=== PATIENT | male | born 1990 | race Caucasian/White ===

== ENCOUNTER 2019-06-17 22:16 | Emergency (ER) | payer OTHER, SELFPAY ==
--- NOTE | 2019-06-17 23:57 | EDPHYS ---
Physician Documentation [facility] Name: Thomas De Los Santos Age: 29 yrs Sex: Male : 1990 Arrival Date: 06/17/2019 Time: 22:20 Bed 24 Private MD: None, None ED Physician Pankaj Witt HPI: 06/17 23:21 This 29 yrs old Male presents to ER via Ambulatory with complaints of Chest jmm and back pain. 23:21 The patient or guardian reports cough. Onset: The symptoms/episode began/occurred jmm gradually, 2 day(s) ago. Modifying factors: The symptoms are alleviated by nothing. the symptoms are aggravated by nothing. Associated signs and symptoms: Pertinent positives: fever, Pertinent negatives: sore throat, vomiting. The patient has not experienced similar symptoms in the past. This is a 29 year old male with no chronic medical conditions that presents to the ED with complaints of cough with chest pain, body aches, upper back pain beginning 2 days ago. Denies vomiting or abdominal pain. . Historical: - Allergies: 22:33 METRONIDAZOLE; - Home Meds: 22:33 None [Active]; - PMHx: 22:33 CDIFF; - PSHx: 22:33 None; - Immunization history:: Adult Immunizations not up to date. - Social history:: Smoking status: Patient uses tobacco products, denies chronic smoking, but will smoke occasionally. - Ebola Screening: : Patient negative for fever greater than or equal to 101.5 degrees Fahrenheit, and additional compatible Ebola Virus Disease symptoms Patient denies exposure to infectious person. ROS: 23:21 Abdomen/GI: Negative for abdominal pain, nausea, vomiting, diarrhea, and constipation. jmm 23:21 Constitutional: Positive for body aches, chills. 23:21 Cardiovascular: Positive for chest pain, with cough. 23:21 Respiratory: Positive for cough. 23:21 Back: Positive for pain at rest. 23:21 All other systems are negative. Exam: 23:21 Constitutional: This is a well developed, well nourished patient who is awake, alert, jmm and in no acute distress. Head/Face: atraumatic. Eyes: EOMI, no conjunctival erythema appreciated ENT: Moist Mucus Membranes 23:21 Neck: Trachea midline, Supple Chest/axilla: Normal chest wall appearance and motion. 23:21 Abdomen/GI: Non distended, soft Back: Normal ROM Skin: General appearance color normal MS/ Extremity: Moves all extremities, no obvious deformities appreciated, no edema noted to the lower extremities Neuro: Awake and alert, normal gait Psych: Behavior is normal, Mood is normal, Patient is cooperative and pleasant 23:21 ENT: TM's: are normal, Posterior pharynx: Uvula: erythema, erythema, that is moderate. 23:21 Cardiovascular: Rate: normal, Rhythm: regular. 23:21 Respiratory: the patient does not display signs of respiratory distress, Respirations: normal, Breath sounds: wheezing: that is mild, is heard in the left posterior upper lobe. Vital Signs: 22:32 BP 139 / 85; Pulse 77; Resp 18; Temp 97.9; Pulse Ox 100% ; Weight 90.72 kg; Height 6 wh ft. 0 in. (182.88 cm); 23:44 BP 123 / 81; Pulse 72; Resp 18; Pulse Ox 100% on R/A; wh 06/18 00:32 BP 130 / 82; Pulse 78; Resp 17; Temp 98(O); Pulse Ox 100% ; rv 06/17 22:32 Body Mass Index 27.12 (90.72 kg, 182.88 cm) wh MDM: 06/17 22:41 Patient medically screened. dulce 23:55 Data reviewed: vital signs, nurses notes. Counseling: I had a detailed discussion with dulce the patient and/or guardian regarding: the historical points, exam findings, and any diagnostic results supporting the discharge/admit diagnosis, lab results, radiology results, the need for outpatient follow up, to return to the emergency department if symptoms worsen or persist or if there are any questions or concerns that arise at home. ED course: Patient is alert and non toxic in appearance in the ED. CXR clear. patient advised to follow up with pcp and otherwise given strict return precautions. Patient understood and agrees with the plan of care. . 06/17 22:27 Order name: Flu; Complete Time: 23:20 wh 06/17 22:27 Order name: Strep; Complete Time: 23:20 wh 06/17 22:46 Order name: Chest Pa And Lat (2 Views) XRAY [facility] 06/17 23:21 Order name: Throat Culture EDMS Administered Medications: No medications were administered Disposition: 06/17/19 23:56 Discharged to Home. Impression: Influenza due to certain identified influenza viruses. - Condition is Stable. - Discharge Instructions: Influenza, Adult. - Prescriptions for Albuterol Sulfate 90 mcg/actuation - inhale 1-2 puff by INHALATION route every 4-6 hours; 1 Inhaler. Tamiflu 75 mg Oral Capsule - take 1 tablet by ORAL route every 12 hours for 5 days; 10 tablet. - Medication Reconciliation Form, Thank You Letter, Antibiotic Education, Prescription Opioid Use, Work release form form. - Follow up: Private Physician; When: 2 - 3 days; Reason: Recheck today's complaints, Continuance of care, Re-evaluation by your physician. Addendum: 06/20/2019 21:57 Co-signature as Attending Physician, Pankaj Witt MD I agree with the assessment and t w4 plan of care. Signatures: Dispatcher [employer] EDMS Koko Bailey PA PA jmm Habalo, Winsy wh Wadley, Terrence, MD MD tw4 Artem Hedrick RN RN rv Corrections: (The following items were deleted from the chart) 06/18 00:33 06/17 23:56 06/17/2019 23:56 Discharged to Home. Impression: Influenza due to certain rv identified influenza viruses. Condition is Stable. Forms are Medication Reconciliation Form, Thank You Letter, Antibiotic Education, Prescription Opioid Use. Follow up: Private Physician; When: 2 - 3 days; Reason: Recheck today's complaints, Continuance of care, Re-evaluation by your physician. dulce
--- NOTE | 2019-06-17 23:57 | ER ---
Nurse's Notes [facility] Name: Thomas De Los Santos Age: 29 yrs Sex: Male : 1990 Arrival Date: 06/17/2019 Time: 22:20 Bed 24 Private MD: None, None Diagnosis: Influenza due to certain identified influenza viruses Presentation: 06/17 22:30 Presenting complaint: Patient states: Pt C/O productive cough, chest congestion and wh back pain for 3 days now, denies fever, nausea or vomiting. Transition of care: patient was not received from another setting of care. Onset of symptoms was June 17, 2019. Risk Assessment: Do you want to hurt yourself or someone else? Patient reports no desire to harm self or others. Initial Sepsis Screen: Does the patient meet any 2 criteria? No. Patient's initial sepsis screen is negative. Does the patient have a suspected source of infection? Yes: Productive cough/pneumonia. Care prior to arrival: None. 22:30 Method Of Arrival: Ambulatory 22:30 Acuity: SUBHASH 4 Historical: - Allergies: 22:33 METRONIDAZOLE; - Home Meds: 22:33 None [Active]; - PMHx: 22:33 CDIFF; - PSHx: 22:33 None; - Immunization history:: Adult Immunizations not up to date. - Social history:: Smoking status: Patient uses tobacco products, denies chronic smoking, but will smoke occasionally. - Ebola Screening: : Patient negative for fever greater than or equal to 101.5 degrees Fahrenheit, and additional compatible Ebola Virus Disease symptoms Patient denies exposure to infectious person. Screenin:35 Abuse screen: Denies threats or abuse. Denies injuries from another. Nutritional screening: No deficits noted. Tuberculosis screening: No symptoms or risk factors identified. Fall Risk None identified. Assessment: 22:34 General: Appears in no apparent distress. Behavior is calm, cooperative, appropriate for age. Pain: Complains of pain in back Pain does not radiate. Pain currently is 5 out of 10 on a pain scale. Quality of pain is described as aching, Pain began 2-3 days ago. Neuro: Level of Consciousness is awake, alert, obeys commands, Oriented to person, place, time, situation, Appropriate for age. Cardiovascular: Heart tones S1 S2. Respiratory: Reports cough that is productive, Airway is patent Respiratory effort is even, unlabored, Respiratory pattern is regular, symmetrical, Breath sounds are clear bilaterally. GI: Abdomen is flat, non-distended. : No signs and/or symptoms were reported regarding the genitourinary system. EENT: Throat is pink. Derm: Skin is intact, is healthy with good turgor, Skin is pink, warm \T\ dry. normal. Musculoskeletal: Circulation, motion, and sensation intact. 23:44 Reassessment: Patient appears in no apparent distress at this time. No changes from previously documented assessment. Patient and/or family updated on plan of care and expected duration. Pain level reassessed. Patient is alert, oriented x 3, equal unlabored respirations, skin warm/dry/pink. Vital Signs: 22:32 BP 139 / 85; Pulse 77; Resp 18; Temp 97.9; Pulse Ox 100% ; Weight 90.72 kg; Height 6 ft. 0 in. (182.88 cm); 23:44 BP 123 / 81; Pulse 72; Resp 18; Pulse Ox 100% on R/A; 06/18 00:32 BP 130 / 82; Pulse 78; Resp 17; Temp 98(O); Pulse Ox 100% ; rv 06/17 22:32 Body Mass Index 27.12 (90.72 kg, 182.88 cm) ED Course: 06/17 22:20 Patient arrived in ED. es 22:21 None, None is Private Physician. es 22:23 Pita Lyon is Primary Nurse. 22:23 Koko Bailey PA is PHCP. [facility] 22:24 Pankaj Witt MD is Attending Physician. [facility] 22:31 Triage completed. 22:35 Arm band placed on right wrist. 22:35 Patient has correct armband on for positive identification. Bed in low position. Call light in reach. Side rails up X 1. Pulse ox on. NIBP on. 23:13 Chest Pa And Lat (2 Views) XRAY In Process Unspecified. EDMS 06/18 00:32 No provider procedures requiring assistance completed. Patient did not have IV access rv during this emergency room visit. Administered Medications: No medications were administered Outcome: 06/17 23:56 Discharge ordered by . [facility] 06/18 00:32 Discharged to home ambulatory, with family. rv Condition: good Discharge instructions given to patient, Instructed on discharge instructions, follow up and referral plans. medication usage, Demonstrated understanding of instructions, follow-up care, medications, Prescriptions given X 2. 00:33 Patient left the ED. rv Signatures: Dispatcher [employer] EDMS Koko Bailey PA PA jmm Salyer, Pita Orr Ronaldo, RN RN rv
[2019-06-18 01:27] VITALS: O2SAT 100
[2019-06-18 01:31] VITALS: BP 130/82; TEMP 98
--- NOTE | 2019-06-18 10:40 | RAD REPORT ---
EXAM DESCRIPTION: RAD - Chest Pa And Lat (2 Views) - 06/17/2019 11:13 pm CLINICAL HISTORY: chest pain, cough Chest pain. COMPARISON: No comparisons FINDINGS: The lungs are clear. The heart is normal in size. No displaced fractures. IMPRESSION: No acute or concerning finding suspected.
== END 2019-06-18 00:33 | disposition home or self-care (01) ==
LOC: ER 22:16
DX: J10.1 Influenza due to other identified influenza virus with other respiratory manifestations (principal); Z72.0 Tobacco use; Z88.8 Allergy status to other drugs, medicaments and biological substances
CPT/HCPCS: 71046; 87070; 87081; 87804; 99283

== ENCOUNTER 2019-10-04 14:43 | Emergency (ER) | payer SELFPAY ==
--- NOTE | 2019-10-04 16:01 | ER ---
Nurse's Notes [facility] Name: Thomas De Los Santos Age: 29 yrs Sex: Male : 1990 Arrival Date: 10/04/2019 Time: 14:46 Bed 17 Private MD: Diagnosis: Acute pharyngitis;Acute serous otitis media Presentation: 10/03 15:07 Chief complaint: Patient states: Sore throat and fever since yesterday. Ibuprofen taken ca1 at 1200 today. Coronavirus screen: The patient has NOT traveled to [place] in the past 14 days. The patient has NOT had contact with known and/or suspected case of Coronavirus. Ebola Screen: Patient negative for fever greater than or equal to 101.5 degrees Fahrenheit, and additional compatible Ebola Virus Disease symptoms Patient denies exposure to infectious person. Patient denies travel to an Ebola-affected area in the 21 days before illness onset. No symptoms or risks identified at this time. Initial Sepsis Screen: Does the patient meet any 2 criteria? No. Patient's initial sepsis screen is negative. Does the patient have a suspected source of infection? No. Patient's initial sepsis screen is negative. Risk Assessment: Do you want to hurt yourself or someone else? Patient reports no desire to harm self or others. 15:07 Method Of Arrival: Ambulatory ca1 15:07 Acuity: SUBHASH 4 ca1 15:07 Onset of symptoms was October 04, 2019. ca1 Triage Assessment: 15:07 EENT: Throat is reddened has patchy exudate. ca1 15:30 General: Appears in no apparent distress. comfortable, Behavior is calm, cooperative. mg2 Historical: - Allergies: 15:11 METRONIDAZOLE; ca1 - Home Meds: 15:11 None [Active]; ca1 - PMHx: 15:11 Cdiff; ca1 - PSHx: 15:11 None; ca1 - Immunization history:: Adult Immunizations not up to date, Flu vaccine is not up to date. - Social history:: Smoking status: Patient reports the use of cigarette tobacco products, denies chronic smoking, but will smoke occasionally. Screenin:30 Abuse screen: Denies threats or abuse. Denies injuries from another. Nutritional mg2 screening: No deficits noted. Tuberculosis screening: No symptoms or risk factors identified. Fall Risk None identified. Assessment: 15:30 General: Appears in no apparent distress. comfortable. Pain: Complains of pain in mg2 throat. Neuro: Level of Consciousness is awake, alert, obeys commands, Oriented to person, place, time, situation. Cardiovascular: Capillary refill < 3 seconds Patient's skin is warm and dry. Respiratory: Airway is patent Respiratory effort is even, unlabored, Breath sounds are clear bilaterally. GI: No signs and/or symptoms were reported involving the gastrointestinal system. : No signs and/or symptoms were reported regarding the genitourinary system. EENT: Reports sore throat. Derm: Skin is intact, is healthy with good turgor, Skin is pink, warm \T\ dry. normal. Musculoskeletal: Circulation, motion, and sensation intact. Capillary refill < 3 seconds. Vital Signs: 15:07 BP 130 / 78; Pulse 84; Resp 16 S; Temp 99.9(O); Pulse Ox 96% on R/A; Weight 90.72 kg ca1 (R); Height 5 ft. 11 in. (180.34 cm) (R); 15:58 BP 125 / 78; Pulse 80; Resp 18; Temp 99.5; Pulse Ox 100% on R/A; mg2 15:07 Body Mass Index 27.89 (90.72 kg, 180.34 cm) ca1 ED Course: 14:46 Patient arrived in ED. mr 14:52 [facility] snw 14:52 Kiki Madsen MD is Attending Physician. snw 15:07 Arm band placed on right wrist. ca1 15:09 Triage completed. ca1 15:20 Chad Martínez, TANNER is Primary Nurse. mg2 15:30 Patient has correct armband on for positive identification. mg2 15:37 No provider procedures requiring assistance completed. Strep swab sent to lab. Patient mg2 did not have IV access during this emergency room visit. Administered Medications: 16:14 Not Given (patient left already): predniSONE 40 mg PO once mg2 16:14 Not Given (patient left already): ZyrTEC - Cetirizine 10 mg PO once mg2 16:15 Not Given (patient left already): Augmentin 875 mg PO once mg2 Outcome: 16:00 Discharge ordered by . snw 16:15 Patient left the ED. mg2 16:15 Discharged to home ambulatory. mg2 16:15 Condition: stable 16:15 Discharge instructions given to patient, Instructed on discharge instructions, follow mg2 up and referral plans. medication usage, Demonstrated understanding of instructions, follow-up care, medications, Prescriptions given X 3. Signatures: Malu Lr, SHEETER HELPER-C SHEETER HELPER-Csnw Ryan Yuliana Martínez, Chad, RN RN mg2 Yojana Turner RN RN ca1 Corrections: (The following items were deleted from the chart) 15:10 15:07 Pulse 84bpm; Resp 16bpm; Spontaneous; Pulse Ox 96% RA; Temp 99.9F Oral; 90.72 kg ca1 Reported; Height 5 ft. 11 in. Reported; BMI: 27.8; ca1
--- NOTE | 2019-10-04 16:01 | EDPHYS ---
Physician Documentation [facility] Name: Thomas De Los Santos Age: 29 yrs Sex: Male : 1990 Arrival Date: 10/04/2019 Time: 14:46 Bed 17 Private MD: ED Physician Kiki Madsen HPI: 10/03 16:08 This 29 yrs old Male presents to ER via Ambulatory with complaints of Sore snw Throat. 16:08 The patient presents with sore throat. The patient describes throat pain as raw, snw scratchy, suffocating. Onset: The symptoms/episode began/occurred suddenly, last night. Severity of symptoms: At their worst the symptoms were moderate. Modifying factors: The symptoms are alleviated by nothing. Associated signs and symptoms: Pertinent positives: fever, Sore throat. The patient has experienced similar episodes in the past. It is unknown whether or not the patient has recently seen a physician. Historical: - Allergies: 15:11 METRONIDAZOLE; ca1 - Home Meds: 15:11 None [Active]; ca1 - PMHx: 15:11 Cdiff; ca1 - PSHx: 15:11 None; ca1 - Immunization history:: Adult Immunizations not up to date, Flu vaccine is not up to date. - Social history:: Smoking status: Patient reports the use of cigarette tobacco products, denies chronic smoking, but will smoke occasionally. ROS: 16:07 Eyes: Negative for injury, pain, redness, and discharge, ENT: Negative for injury, snw Positive sore throat, swollen tonsils Cardiovascular: Negative for chest pain, palpitations, and edema, Respiratory: Negative for shortness of breath, cough, wheezing, and pleuritic chest pain, Abdomen/GI: Negative for abdominal pain, nausea, vomiting, diarrhea, and constipation, Back: Negative for injury and pain, : Negative for injury, bleeding, discharge, and swelling, MS/Extremity: Negative for injury and deformity, Skin: Negative for injury, rash, and discoloration, Neuro: Negative for headache, weakness, numbness, tingling, and seizure. 16:07 Constitutional: Positive for fever. 16:07 Neck: Positive for swollen nodes. Exam: 16:05 Head/Face: Normocephalic, atraumatic. Eyes: Pupils equal round and reactive to light, snw extra-ocular motions intact. Lids and lashes normal. Conjunctiva and sclera are non-icteric and not injected. Cornea within normal limits. Periorbital areas with no swelling, redness, or edema. 16:05 Chest/axilla: Normal chest wall appearance and motion. Nontender with no deformity. No lesions are appreciated. Cardiovascular: Regular rate and rhythm with a normal S1 and S2. No gallops, murmurs, or rubs. Normal PMI, no JVD. No pulse deficits. Respiratory: Lungs have equal breath sounds bilaterally, clear to auscultation and percussion. No rales, rhonchi or wheezes noted. No increased work of breathing, no retractions or nasal flaring. Abdomen/GI: Soft, non-tender, with normal bowel sounds. No distension or tympany. No guarding or rebound. No evidence of tenderness throughout. Back: No spinal tenderness. No costovertebral tenderness. Full range of motion. Skin: Warm, dry with normal turgor. Normal color with no rashes, no lesions, and no evidence of cellulitis. MS/ Extremity: Pulses equal, no cyanosis. Neurovascular intact. Full, normal range of motion. Neuro: Awake and alert, GCS 15, oriented to person, place, time, and situation. Cranial nerves II-XII grossly intact. Motor strength 5/5 in all extremities. Sensory grossly intact. Cerebellar exam normal. Normal gait. Psych: Awake, alert, with orientation to person, place and time. Behavior, mood, and affect are within normal limits. 16:05 Constitutional: The patient appears alert, febrile. 16:05 ENT: TM's: dullness, on the right, Examination of the other ear shows no obvious abnormality, Mouth: is normal, Posterior pharynx: Tonsils: bilaterally enlarged, with erythema, with exudate, Dental exam: normal, Voice: is muffled. 16:05 Neck: Lymph nodes: lymphadenopathy is appreciated, anterior cervical nodes. Vital Signs: 15:07 BP 130 / 78; Pulse 84; Resp 16 S; Temp 99.9(O); Pulse Ox 96% on R/A; Weight 90.72 kg ca1 (R); Height 5 ft. 11 in. (180.34 cm) (R); 15:58 BP 125 / 78; Pulse 80; Resp 18; Temp 99.5; Pulse Ox 100% on R/A; mg2 15:07 Body Mass Index 27.89 (90.72 kg, 180.34 cm) ca1 MDM: 15:14 Patient medically screened. snw 16:04 Data reviewed: vital signs, nurses notes. Data interpreted: Pulse oximetry: on room air snw is 96 %. Interpretation: acceptable. Counseling: I had a detailed discussion with the patient and/or guardian regarding: the historical points, exam findings, and any diagnostic results supporting the discharge/admit diagnosis, lab results, the need for outpatient follow up, to return to the emergency department if symptoms worsen or persist or if there are any questions or concerns that arise at home. Special discussion: I have referred the patient to see his PCP for further evaluation of high blood pressure. Based on the history and exam findings, there is no indication for further emergent testing or inpatient evaluation. I discussed with the patient/guardian the need to see the ENT specialist for further evaluation of the symptoms. I discussed with the patient/guardian the need to see the primary care provider for further evaluation of the symptoms. 10/03 14:52 Order name: Strep; Complete Time: 15:53 snw 10/03 15:58 Order name: Throat Culture EDMS Administered Medications: 16:14 Not Given (patient left already): predniSONE 40 mg PO once mg2 16:14 Not Given (patient left already): ZyrTEC - Cetirizine 10 mg PO once mg2 16:15 Not Given (patient left already): Augmentin 875 mg PO once mg2 Disposition: 10/04/19 16:00 Discharged to Home. Impression: Acute pharyngitis, Acute serous otitis media. - Condition is Stable. - Discharge Instructions: Otitis Media, Adult, Pharyngitis, Rehydration, Adult. - Prescriptions for Augmentin 500- 125 mg Oral Tablet - take 1 tablet by ORAL route every 8 hours for 10 days; 30 tablet. Zyrtec 10 mg Oral Tablet - take 1 tablet by ORAL route once daily As needed; 20 tablet. Prednisone 20 mg Oral Tablet - take 2 tablet by ORAL route once daily for 5 days; 10 tablet. Pepcid 20 mg Oral Tablet - take 1 tablet by ORAL route once daily; 20 tablet. - Work release form, Medication Reconciliation Form, Thank You Letter, Antibiotic Education, Prescription Opioid Use form. - Follow up: Emergency Department; When: As needed; Reason: Worsening of condition. Follow up: Private Physician; When: 1 week; Reason: Recheck today's complaints, Continuance of care, Re-evaluation by your physician. Addendum: 10/10/2019 01:29 Co-signature as Attending Physician, Kiki Madsen MD. m a2 Signatures: Dispatcher [employer] EDMS Malu Lr, INSIDE TRUCKER-C INSIDE TRUCKER-Csnw Kiki Madsen MD MD ma2 Chad Martínez, RN RN mg2 Yojana Turner RN RN ca1 Corrections: (The following items were deleted from the chart) 10/03 16:15 16:00 10/04/2019 16:00 Discharged to Home. Impression: Acute pharyngitis; Acute serous mg2 otitis media. Condition is Stable. Forms are Medication Reconciliation Form, Thank You Letter, Antibiotic Education, Prescription Opioid Use. Follow up: Emergency Department; When: As needed; Reason: Worsening of condition. Follow up: Private Physician; When: 1 week; Reason: Recheck today's complaints, Continuance of care, Re-evaluation by your physician. snw
[2019-10-04] MEDS ORDERED: CETIRIZINE HCL 5 MG TABLET ONE (16:15)
[2019-10-04] MEDS ORDERED: AMOX/K CLAV 875 MG TAB ONE (16:16)
[2019-10-04] MEDS ORDERED: predniSONE 20 MG TAB ONE (16:16)
[2019-10-04 16:52] VITALS: BP 130/78; TEMP 99.9; O2SAT 96
== END 2019-10-04 16:15 | disposition home or self-care (01) ==
LOC: ER 14:43
DX: H65.01 Acute serous otitis media, right ear (principal); Z72.0 Tobacco use; Z88.8 Allergy status to other drugs, medicaments and biological substances
CPT/HCPCS: 87070; 87081; 99283; J7512